=== PATIENT | male | born 1970 | race Caucasian/White ===

== ENCOUNTER 2017-12-11 17:05 | Emergency (ER) | payer MEDICAID ==
[~2017-12-11] VITALS: Ht 172.7 cm; Wt 79.5 kg
[~2017-12-11 17:05] MED LIST: CEPH-571 PO; HYDR-569 PO; NO HOME MEDS; NORCO10T PO; PENI500T2 PO
[2017-12-11 17:42] VITALS: BP 139/80
[2017-12-11] MEDS ORDERED: SULF1TAB49 PO (17:57)
[2017-12-11] MEDS ORDERED: CEPH-572 PO (17:57)
[2017-12-11] MEDS: cephalexin 500mg capsule PO ONE (17:59)
[2017-12-11] MEDS: sulfamethoxazole/trimethoprim DS (800/160mg) tablet PO ONE (17:59)
== END 2017-12-11 18:31 | disposition home or self-care (01) ==
LOC: ER 17:06
DX: L03.012 Cellulitis of left finger (principal); F15.10 Other stimulant abuse, uncomplicated; Z88.5 Allergy status to narcotic agent; Z98.890 Other specified postprocedural states
CPT/HCPCS: 99283

== ENCOUNTER 2023-04-24 08:15 | Emergency (ER) | payer MEDICAID ==
[~2023-04-24] VITALS: Ht 175.3 cm; Wt 95.0 kg
[~2023-04-24 08:15] MED LIST changes: +HYDR-4383 PO; -HYDR-569 PO
[2023-04-24 08:21] VITALS: BP 123/69; PULSE 85; TEMP 97.8; O2SAT 98
[2023-04-24 08:31] VITALS: RESP 16
[2023-04-24] MEDS ORDERED: CYCL-1 PO (09:32)
== END 2023-04-24 09:50 | disposition home or self-care (01) ==
LOC: ER 08:16
DX: S16.1XXA Strain of muscle, fascia and tendon at neck level, initial encounter (principal); M54.50 Low back pain, unspecified; E11.9 Type 2 diabetes mellitus without complications; F15.90 Other stimulant use, unspecified, uncomplicated; F17.210 Nicotine dependence, cigarettes, uncomplicated; Z72.89 Other problems related to lifestyle; Z90.49 Acquired absence of other specified parts of digestive tract; Z87.81 Personal history of (healed) traumatic fracture; Z79.899 Other long term (current) drug therapy; Z88.0 Allergy status to penicillin; Z88.1 Allergy status to other antibiotic agents; V43.52XA Car driver injured in collision with other type car in traffic accident, initial encounter; Y93.89 Activity, other specified; Y92.89 Other specified places as the place of occurrence of the external cause; Y99.8 Other external cause status
CPT/HCPCS: 72040; 99283